=== PATIENT | female | born 1960 | race Caucasian/White ===

== ENCOUNTER 2018-03-24 11:51 | Day surgery (SDC) | payer OTHER ==
[2018-03-24] MEDS ORDERED: PROPOFOL 40 ML (13:59)
== END 2018-03-24 15:12 | disposition home or self-care (01) ==
LOC: GIL 11:51
DX: Z86.010 Personal history of colon polyps (principal); K64.8 Other hemorrhoids; E11.9 Type 2 diabetes mellitus without complications; E78.5 Hyperlipidemia, unspecified; E03.9 Hypothyroidism, unspecified; I10 Essential (primary) hypertension
CPT/HCPCS: 45378; 82962

== ENCOUNTER 2018-09-15 11:24 | Day surgery (SDC) | payer OTHER ==
[2018-09-15] MEDS ORDERED: PROPOFOL 20 ML (13:44)
[2018-09-15] MEDS ORDERED: FENTAnyl 50 MCG/ML VIAL (13:46)
[2018-09-15] MEDS ORDERED: ONDANSETRON 4 MG INJ IV (14:00)
[2018-09-15] MEDS ORDERED: LABETALOL HCL 20MG INJ IV (14:00)
[2018-09-15] MEDS ORDERED: hydrALAzine 20 MG INJ IV (14:00)
== END 2018-09-15 15:30 | disposition home or self-care (01) ==
LOC: GIL 11:24
DX: K21.0 Gastro-esophageal reflux disease with esophagitis (principal); K44.9 Diaphragmatic hernia without obstruction or gangrene; I10 Essential (primary) hypertension; E11.9 Type 2 diabetes mellitus without complications; E03.9 Hypothyroidism, unspecified; E66.01 Morbid (severe) obesity due to excess calories; Z68.43 Body mass index [BMI] 50.0-59.9, adult
CPT/HCPCS: 43239; 82962; 88305; 88312; 88313

== ENCOUNTER 2019-03-02 18:41 | Inpatient (IN) | payer OTHER ==
[2019-03-02] MEDS ORDERED: MAGNESIUM HYDROXIDE 30ML CUP PO (19:00)
[2019-03-02] MEDS ORDERED: ACETAMINOPHEN 325 MG TAB PO ×2 (19:00→20:00)
[2019-03-02] MEDS ORDERED: BISACODYL 10 MG SUPP PR (19:00)
[2019-03-02] MEDS ORDERED: LACTULOSE 30ML CUP PO (19:00)
[2019-03-02] MEDS ORDERED: PENDING SANTYL ORDER FOR WOUND CARE XX (19:00)
[2019-03-02] MEDS ORDERED: GLUCAGON 1 MG INJ IM (20:30)
[2019-03-02] MEDS ORDERED: GLUCOSE GEL 15 GRAM TUBE BUCCAL (20:30)
[2019-03-02] MEDS ORDERED: DEXTROSE 50% 50 ML SYRINGE IV ×2 (20:30)
[2019-03-02] MEDS ORDERED: GLUCOSE GEL 15 GRAM TUBE PO ×2 (20:30)
[2019-03-02] MEDS: INSULIN ASPART [NOVOLOG] 3 ML PEN SC (21:00)
[2019-03-02] MEDS: SENNA TAB PO (21:17)
[2019-03-02] MEDS: METOPROLOL 25 MG TAB PO (21:17)
[2019-03-02] MEDS: SUCRALFATE 1 GM TAB PO (21:17)
[2019-03-02] MEDS: DOCUSATE SODIUM 100 MG CAP PO (21:18)
[2019-03-02] MEDS: GABAPENTIN 100 MG CAP PO (21:18)
[2019-03-02] MEDS: HYDROmorphONE 1 MG/ML SYG IV (21:20)
[2019-03-02] MEDS ORDERED: NALOXONE (0.4 MG/ML) INJ IV (22:30)
[2019-03-02] MEDS ORDERED: HYOSCYAMINE 0.125 MG SUBL TAB PO (22:30)
[2019-03-02] MEDS ORDERED: AL HYDROX/MG HYDROX/SIMETH 30 ML CUP PO (22:30)
[2019-03-03] MEDS: HYDROmorphONE 1 MG/ML SYG IV ×7 (01:42→22:02)
[2019-03-03 04:56] LABS: ADD UMIC YES; UR AMORPHOUS CRYSTAL FEW /HPF (NONE SEEN); UR ASCORBIC ACID NEGATIVE (NEGATIVE); UR BACTERIA FEW /HPF (NONE SEEN); UR BILIRUBIN (Dip) NEGATIVE (NEGATIVE); UR BLOOD (Dip) NEGATIVE (NEGATIVE); UR CALCIUM OXALATE CRYSTAL MANY /HPF (NONE SEEN); UR CLARITY CLOUDY (CLEAR); UR COLOR YELLOW (YELLOW); UR GLUCOSE (Dip) NEGATIVE (NEGATIVE); UR KETONES (Dip) NEGATIVE (NEGATIVE); UR LEUKOCYTE ESTERASE (Dip) NEGATIVE Leu/ul (NEGATIVE); UR MUCUS FEW /HPF (NONE SEEN); UR NITRITE (Dip) POSITIVE (NEGATIVE); UR RBC 1 /HPF (0-5); UR SPECIFIC GRAVITY (Dip) 1.016 (1.003-1.030); UR SQUAMOUS EPITHELIAL CELL FEW /HPF (FEW); UR TOTAL PROTEIN (Dip) NEGATIVE (NEGATIVE); UR UROBILINOGEN (Dip) 1+ mg/dL (NEGATIVE); UR WBC 0 /HPF (0-5)
[2019-03-03 06:10] LABS: ADD MAN DIFF? NO
[2019-03-03 06:14] LABS: BASOPHIL # 0.1 10^3/ul (0.0-0.1); BASOPHILS % 0.7 % (0.0-2.0); EOSINOPHILS # 0.5 10^3/ul (0.0-0.5); EOSINOPHILS % 5.9 % (0.0-7.0); HEMOGLOBIN 12.9 g/dl (12.0-16.0); LYMPHOCYTES # 2.9 10^3/ul (0.8-2.9); MEAN CORPUSCULAR HEMOGLOBIN 30.3 pg (29.0-33.0); MEAN CORPUSCULAR HGB CONC 33.1 g/dl (32.0-37.0); MEAN CORPUSCULAR VOLUME 91.5 fl (82.0-101.0); MEAN PLATELET VOLUME 9.6 fl (7.4-10.4); MONOCYTE # 0.7 10^3/ul (0.3-0.9); MONOCYTES % 7.7 % (0.0-11.0); NEUTROPHIL # 4.7 10^3/ul (1.6-7.5); NEUTROPHILS % 53.3 % (39.0-77.0); PLATELET COUNT 321 10^3/UL (140-415); RED BLOOD COUNT 4.26 10^6/ul (4.20-5.40); RED CELL DISTRIBUTION WIDTH 14.3 % (11.5-14.5)
[2019-03-03 06:14] LABS: WHITE BLOOD COUNT 8.9 10^3/ul (4.8-10.8)
[2019-03-03 06:35] LABS: ALANINE AMINOTRANSFERASE 36 IU/L (13-69); ALBUMIN 3.5 g/dl (3.3-4.9); ALBUMIN/GLOBULIN RATIO 1.09; ALKALINE PHOSPHATASE 81 IU/L (42-121); ANION GAP 8 (5-13); ASPARTATE AMINO TRANSFERASE 37 IU/L (15-46); BILIRUBIN,INDIRECT 0.7 mg/dl (0-1.1); BILIRUBIN,TOTAL 0.7 mg/dl (0.2-1.3); BLOOD UREA NITROGEN 11 mg/dl (7-20); CALCIUM 8.9 mg/dl (8.4-10.2); CARBON DIOXIDE 28 mmol/L (21-31); CHLORIDE 103 mmol/L (97-110); CREATININE 0.57 mg/dl (0.44-1.00); Estimated GFR > 60 mL/min (>60); GLUCOSE 123 mg/dl (70-220); POTASSIUM 3.4 mmol/L (3.5-5.1); SODIUM 139 mmol/L (135-144); TOTAL PROTEIN 6.7 g/dl (6.1-8.1)
[2019-03-03] MEDS: SUCRALFATE 1 GM TAB PO ×4 (06:36→21:10)
[2019-03-03] MEDS: INSULIN ASPART [NOVOLOG] 3 ML PEN SC ×4 (07:35→21:00)
[2019-03-03] MEDS: ACCU-CHEK XX ×4 (07:52→21:00)
[2019-03-03] MEDS: metFORMIN 500 MG TAB PO ×2 (07:54→17:58)
[2019-03-03] MEDS: CHOLECALCIFEROL 2,000 UNIT CAP PO (08:51)
[2019-03-03] MEDS: DOCUSATE SODIUM 100 MG CAP PO ×2 (08:54→21:00)
[2019-03-03] MEDS: GABAPENTIN 100 MG CAP PO ×3 (08:54→21:10)
[2019-03-03] MEDS: METOPROLOL 25 MG TAB PO ×2 (08:55→21:11)
[2019-03-03] MEDS: TOPIRAMATE 25 MG TAB PO (08:55)
[2019-03-03] MEDS: HYDROCODONE/APAP (5/325) TAB PO ×2 (09:44→14:16)
[2019-03-03] MEDS: OXYCODONE/ACETAMINOPHEN (10/325) TAB PO (20:00)
[2019-03-03] MEDS: SENNA TAB PO (21:00)
[2019-03-04] MEDS: HYDROmorphONE 1 MG/ML SYG IV ×3 (01:03→07:02)
[2019-03-04] MEDS: SUCRALFATE 1 GM TAB PO ×4 (07:01→20:56)
[2019-03-04] MEDS: ACCU-CHEK XX ×4 (07:05→21:02)
[2019-03-04] MEDS: INSULIN ASPART [NOVOLOG] 3 ML PEN SC ×4 (07:35→21:00)
[2019-03-04] MEDS: metFORMIN 500 MG TAB PO ×2 (08:18→17:27)
[2019-03-04] MEDS: DOCUSATE SODIUM 100 MG CAP PO ×2 (08:18→21:00)
[2019-03-04] MEDS: TOPIRAMATE 25 MG TAB PO (08:19)
[2019-03-04] MEDS: GABAPENTIN 100 MG CAP PO ×3 (08:19→21:01)
[2019-03-04] MEDS: METOPROLOL 25 MG TAB PO ×2 (09:00→21:00)
[2019-03-04] MEDS: POTASSIUM CHLORIDE (SR) 20 MEQ TAB PO ×2 (09:58→17:27)
[2019-03-04] MEDS: CHOLECALCIFEROL 1,000 UNIT TAB PO (10:38)
[2019-03-04] MEDS: OXYCODONE/ACETAMINOPHEN (10/325) TAB PO ×4 (10:58→23:50)
[2019-03-04 17:21] LABS: ANION GAP 12 (5-13); BLOOD UREA NITROGEN 13 mg/dl (7-20); CALCIUM 9.6 mg/dl (8.4-10.2); CARBON DIOXIDE 23 mmol/L (21-31); CHLORIDE 103 mmol/L (97-110); CREATININE 0.68 mg/dl (0.44-1.00); Estimated GFR > 60 mL/min (>60); GLUCOSE 133 mg/dl (70-220); POTASSIUM 3.8 mmol/L (3.5-5.1); SODIUM 138 mmol/L (135-144)
[2019-03-04] MEDS: SENNA TAB PO (21:00)
[2019-03-05] MEDS: OXYCODONE/ACETAMINOPHEN (10/325) TAB PO ×5 (03:53→20:40)
[2019-03-05] MEDS: SUCRALFATE 1 GM TAB PO ×4 (06:48→20:40)
[2019-03-05] MEDS: INSULIN ASPART [NOVOLOG] 3 ML PEN SC ×4 (07:35→20:45)
[2019-03-05] MEDS: ACCU-CHEK XX ×4 (08:06→20:45)
[2019-03-05] MEDS ORDERED: CHOLECALCIFEROL 1,000 UNIT TAB PO (09:00)
[2019-03-05] MEDS: DOCUSATE SODIUM 100 MG CAP PO ×2 (09:00→20:44)
[2019-03-05] MEDS: metFORMIN 500 MG TAB PO ×2 (09:06→17:22)
[2019-03-05] MEDS: TOPIRAMATE 25 MG TAB PO (09:06)
[2019-03-05] MEDS: CHOLECALCIFEROL 1,000 UNIT TAB PO (09:06)
[2019-03-05] MEDS: GABAPENTIN 100 MG CAP PO ×3 (09:06→20:40)
[2019-03-05] MEDS: METOPROLOL 25 MG TAB PO ×2 (09:07→20:45)
[2019-03-05] MEDS: SENNA TAB PO (20:44)
[2019-03-06] MEDS: INSULIN ASPART [NOVOLOG] 3 ML PEN SC ×4 (07:35→20:27)
[2019-03-06] MEDS: ACCU-CHEK XX ×4 (07:48→21:32)
[2019-03-06] MEDS: metFORMIN 500 MG TAB PO ×2 (07:49→17:15)
[2019-03-06] MEDS: SUCRALFATE 1 GM TAB PO ×4 (07:49→20:19)
[2019-03-06] MEDS: OXYCODONE/ACETAMINOPHEN (10/325) TAB PO ×4 (07:50→20:18)
[2019-03-06] MEDS: GABAPENTIN 100 MG CAP PO ×3 (08:54→20:19)
[2019-03-06] MEDS: TOPIRAMATE 25 MG TAB PO (08:55)
[2019-03-06] MEDS: METOPROLOL 25 MG TAB PO ×2 (08:55→20:26)
[2019-03-06] MEDS: CHOLECALCIFEROL 1,000 UNIT TAB PO (08:56)
[2019-03-06] MEDS: DOCUSATE SODIUM 100 MG CAP PO ×2 (09:00→20:27)
[2019-03-06] MEDS: SENNA TAB PO (20:27)
[2019-03-07] MEDS: OXYCODONE/ACETAMINOPHEN (10/325) TAB PO ×5 (00:22→21:34)
[2019-03-07] MEDS: SUCRALFATE 1 GM TAB PO ×4 (06:42→21:33)
[2019-03-07] MEDS: INSULIN ASPART [NOVOLOG] 3 ML PEN SC ×4 (07:35→22:11)
[2019-03-07] MEDS: metFORMIN 500 MG TAB PO ×2 (08:03→18:50)
[2019-03-07] MEDS: ACCU-CHEK XX ×4 (08:03→21:00)
[2019-03-07] MEDS: DOCUSATE SODIUM 100 MG CAP PO ×2 (08:27→21:00)
[2019-03-07] MEDS: GABAPENTIN 100 MG CAP PO ×3 (08:28→21:33)
[2019-03-07] MEDS: TOPIRAMATE 25 MG TAB PO (08:29)
[2019-03-07] MEDS: HYDROmorphONE 1 MG/ML SYG IV (08:32)
[2019-03-07] MEDS: CHOLECALCIFEROL 1,000 UNIT TAB PO (09:00)
[2019-03-07] MEDS: METOPROLOL 25 MG TAB PO ×2 (09:00→21:33)
[2019-03-07] MEDS: HYDROmorphONE 1 MG/ML SYG SC ×3 (12:39→19:29)
[2019-03-07 16:12] LABS: ADD MAN DIFF? NO
[2019-03-07 16:17] LABS: BASOPHIL # 0.1 10^3/ul (0.0-0.1); EOSINOPHILS # 0.6 10^3/ul (0.0-0.5); EOSINOPHILS % 7.2 % (0.0-7.0); HEMATOCRIT 41.1 % (37.0-47.0); HEMOGLOBIN 13.4 g/dl (12.0-16.0); LYMPHOCYTES # 2.7 10^3/ul (0.8-2.9); LYMPHOCYTES % 32.4 % (15.0-51.0); MEAN CORPUSCULAR HEMOGLOBIN 30.4 pg (29.0-33.0); MEAN CORPUSCULAR HGB CONC 32.6 g/dl (32.0-37.0); MEAN CORPUSCULAR VOLUME 93.2 fl (82.0-101.0); MEAN PLATELET VOLUME 9.8 fl (7.4-10.4); MONOCYTE # 0.6 10^3/ul (0.3-0.9); MONOCYTES % 7.6 % (0.0-11.0); NEUTROPHIL # 4.3 10^3/ul (1.6-7.5); NEUTROPHILS % 51.4 % (39.0-77.0); PLATELET COUNT 340 10^3/UL (140-415); RED BLOOD COUNT 4.41 10^6/ul (4.20-5.40)
[2019-03-07 16:17] LABS: WHITE BLOOD COUNT 8.3 10^3/ul (4.8-10.8)
[2019-03-07] MEDS: SENNA TAB PO (21:00)
[2019-03-07] MEDS: NEOMYC/POLYMYX/BACIT 30 GM OINT TOP (22:10)
[2019-03-08] MEDS: HYDROmorphONE 1 MG/ML SYG SC ×3 (00:10→19:43)
[2019-03-08] MEDS: ACCU-CHEK XX ×4 (07:05→20:36)
[2019-03-08] MEDS: INSULIN ASPART [NOVOLOG] 3 ML PEN SC ×4 (07:35→20:36)
[2019-03-08] MEDS: SUCRALFATE 1 GM TAB PO ×4 (08:07→20:33)
[2019-03-08] MEDS: metFORMIN 500 MG TAB PO ×2 (08:08→17:26)
[2019-03-08] MEDS: DOCUSATE SODIUM 100 MG CAP PO ×2 (09:00→20:36)
[2019-03-08] MEDS: CHOLECALCIFEROL 1,000 UNIT TAB PO (09:08)
[2019-03-08] MEDS: GABAPENTIN 100 MG CAP PO ×3 (09:09→20:33)
[2019-03-08] MEDS: METOPROLOL 25 MG TAB PO ×2 (09:09→20:34)
[2019-03-08] MEDS: TOPIRAMATE 25 MG TAB PO (09:10)
[2019-03-08] MEDS: OXYCODONE/ACETAMINOPHEN (10/325) TAB PO ×3 (09:10→22:36)
[2019-03-08] MEDS: NEOMYC/POLYMYX/BACIT 30 GM OINT TOP ×2 (09:11→20:34)
[2019-03-08] MEDS: TRIMETHOPRIM/SULFAMETHOX (DS) TAB PO (20:33)
[2019-03-08] MEDS: SENNA TAB PO (20:36)
[2019-03-09] MEDS: HYDROmorphONE 1 MG/ML SYG SC ×2 (00:27→08:19)
[2019-03-09] MEDS: SUCRALFATE 1 GM TAB PO (06:36)
[2019-03-09] MEDS: INSULIN ASPART [NOVOLOG] 3 ML PEN SC (07:35)
[2019-03-09] MEDS: metFORMIN 500 MG TAB PO (07:55)
[2019-03-09] MEDS: ACCU-CHEK XX (07:55)
[2019-03-09] MEDS: TRIMETHOPRIM/SULFAMETHOX (DS) TAB PO (08:14)
[2019-03-09] MEDS: TOPIRAMATE 25 MG TAB PO (08:15)
[2019-03-09] MEDS: GABAPENTIN 100 MG CAP PO (08:15)
[2019-03-09] MEDS: METOPROLOL 25 MG TAB PO (08:15)
[2019-03-09] MEDS: CHOLECALCIFEROL 1,000 UNIT TAB PO (08:16)
[2019-03-09] MEDS: NEOMYC/POLYMYX/BACIT 30 GM OINT TOP (08:16)
[2019-03-09] MEDS: DOCUSATE SODIUM 100 MG CAP PO (09:00)
[2019-03-09] MEDS: OXYCODONE/ACETAMINOPHEN (10/325) TAB PO (10:40)
== END 2019-03-09 11:08 | disposition home health service (06) | DRG 560 ==
LOC: VRC 18:41
PROVIDERS: Physical Medicine & Rehabilitation
DX: Z47.89 Encounter for other orthopedic aftercare (principal); Z68.43 Body mass index [BMI] 50.0-59.9, adult; T81.31XA Disruption of external operation (surgical) wound, not elsewhere classified, initial encounter; T81.49XA Infection following a procedure, other surgical site, initial encounter; E11.9 Type 2 diabetes mellitus without complications; I10 Essential (primary) hypertension; E03.9 Hypothyroidism, unspecified; K58.9 Irritable bowel syndrome, unspecified; E66.01 Morbid (severe) obesity due to excess calories; M79.7 Fibromyalgia; Z74.09 Other reduced mobility; Z98.1 Arthrodesis status
CPT/HCPCS: 80048; 80053; 81001; 82962; 85025; 87070; 87081; 87086; 97110; 97112; 97116; 97163; 97166; 97530; 97535

== ENCOUNTER 2019-03-24 14:48 | Inpatient (IN) | payer OTHER ==
[2019-03-24 15:38] LABS: ADD MAN DIFF? NO
[2019-03-24 15:48] LABS: WHITE BLOOD COUNT 5.6 10^3/ul (4.8-10.8)
[2019-03-24 15:48] LABS: BASOPHILS % 0.7 % (0.0-2.0); EOSINOPHILS # 0.2 10^3/ul (0.0-0.5); EOSINOPHILS % 3.8 % (0.0-7.0); HEMATOCRIT 40.6 % (37.0-47.0); HEMOGLOBIN 13.1 g/dl (12.0-16.0); LYMPHOCYTES # 1.8 10^3/ul (0.8-2.9); MEAN CORPUSCULAR HEMOGLOBIN 30.3 pg (29.0-33.0); MEAN CORPUSCULAR HGB CONC 32.3 g/dl (32.0-37.0); MEAN CORPUSCULAR VOLUME 93.8 fl (82.0-101.0); MEAN PLATELET VOLUME 9.4 fl (7.4-10.4); MONOCYTE # 0.4 10^3/ul (0.3-0.9); MONOCYTES % 6.6 % (0.0-11.0); NEUTROPHIL # 3.2 10^3/ul (1.6-7.5); NEUTROPHILS % 56.7 % (39.0-77.0); PLATELET COUNT 336 10^3/UL (140-415); RED BLOOD COUNT 4.33 10^6/ul (4.20-5.40); RED CELL DISTRIBUTION WIDTH 14.2 % (11.5-14.5)
[2019-03-24 16:10] LABS: ALANINE AMINOTRANSFERASE 38 IU/L (13-69); ALBUMIN 4.3 g/dl (3.3-4.9); ALBUMIN/GLOBULIN RATIO 1.26; ALKALINE PHOSPHATASE 66 IU/L (42-121); ANION GAP 12 (5-13); ASPARTATE AMINO TRANSFERASE 32 IU/L (15-46); BILIRUBIN,INDIRECT 0.4 mg/dl (0-1.1); BILIRUBIN,TOTAL 0.4 mg/dl (0.2-1.3); BLOOD UREA NITROGEN 15 mg/dl (7-20); CALCIUM 9.5 mg/dl (8.4-10.2); CARBON DIOXIDE 22 mmol/L (21-31); CHLORIDE 106 mmol/L (97-110); CREATININE 0.65 mg/dl (0.44-1.00); Estimated GFR > 60 mL/min (>60); GLUCOSE 125 mg/dl (70-220); SODIUM 140 mmol/L (135-144); TOTAL PROTEIN 7.7 g/dl (6.1-8.1)
[2019-03-24] MEDS: CEFAZOLIN 2 GM/50 ML (PMX) 50 ML IVPB ×2 (18:37→22:05)
[2019-03-24] MEDS ORDERED: ACETAMINOPHEN 325 MG TAB PO (20:00)
[2019-03-24] MEDS ORDERED: ONDANSETRON 4 MG INJ IV (20:00)
[2019-03-24] MEDS ORDERED: HYOSCYAMINE 0.125 MG SUBL TAB SL (21:00)
[2019-03-24] MEDS ORDERED: METOPROLOL 100 MG TAB PO (21:00)
[2019-03-24] MEDS ORDERED: metFORMIN 500 MG TAB PO (21:00)
[2019-03-24] MEDS: INSULIN ASPART [NOVOLOG] 3 ML PEN SC (21:00)
[2019-03-24] MEDS ORDERED: GABAPENTIN 400 MG CAP PO (21:00)
[2019-03-24] MEDS ORDERED: ALBUTEROL HFA 8 GM INHALER INH (21:00)
[2019-03-24] MEDS ORDERED: ACETAMINOPHEN 500 MG TAB PO (21:30)
[2019-03-24] MEDS ORDERED: NALOXONE (0.4 MG/ML) INJ IV (21:30)
[2019-03-24] MEDS ORDERED: GLUCAGON 1 MG INJ IM (22:00)
[2019-03-24] MEDS ORDERED: GLUCOSE GEL 15 GRAM TUBE BUCCAL (22:00)
[2019-03-24] MEDS ORDERED: GLUCOSE GEL 15 GRAM TUBE PO ×2 (22:00)
[2019-03-24] MEDS ORDERED: DEXTROSE 50% 50 ML SYRINGE IV ×2 (22:00)
[2019-03-24] MEDS: GABAPENTIN 100 MG CAP PO (22:02)
[2019-03-24] MEDS: SUCRALFATE 1 GM TAB PO (22:02)
[2019-03-24] MEDS: metFORMIN 850 MG TAB PO (22:03)
[2019-03-24] MEDS: HYDROCODONE/APAP (5/325) TAB PO (22:46)
[2019-03-24] MEDS: POTASSIUM CHLORIDE 10 MEQ in SOD CHLORIDE 0.45% 1,000 ML IV (22:47)
[2019-03-24] MEDS: METOPROLOL 25 MG TAB PO (22:47)
[2019-03-24] MEDS: CHOLECALCIFEROL 1,000 UNIT TAB PO (22:47)
[2019-03-25] MEDS: ONDANSETRON 4 MG TAB PO (00:26)
[2019-03-25] MEDS: OXYCODONE/ACETAMINOPHEN (10/325) TAB PO ×4 (02:32→20:05)
[2019-03-25 05:28] LABS: ADD MAN DIFF? NO
[2019-03-25] MEDS: HYDROCODONE/APAP (5/325) TAB PO (05:32)
[2019-03-25] MEDS: CEFAZOLIN 2 GM/50 ML (PMX) 50 ML IVPB ×2 (05:33→13:31)
[2019-03-25 05:37] LABS: WHITE BLOOD COUNT 5.8 10^3/ul (4.8-10.8)
[2019-03-25 05:37] LABS: BASOPHIL # 0.1 10^3/ul (0.0-0.1); BASOPHILS % 0.9 % (0.0-2.0); EOSINOPHILS # 0.3 10^3/ul (0.0-0.5); EOSINOPHILS % 4.5 % (0.0-7.0); HEMOGLOBIN 11.9 g/dl (12.0-16.0); LYMPHOCYTES # 2.4 10^3/ul (0.8-2.9); LYMPHOCYTES % 40.3 % (15.0-51.0); MEAN CORPUSCULAR HEMOGLOBIN 30.7 pg (29.0-33.0); MEAN CORPUSCULAR HGB CONC 32.2 g/dl (32.0-37.0); MEAN CORPUSCULAR VOLUME 95.6 fl (82.0-101.0); MEAN PLATELET VOLUME 9.7 fl (7.4-10.4); MONOCYTE # 0.4 10^3/ul (0.3-0.9); MONOCYTES % 6.5 % (0.0-11.0); NEUTROPHIL # 2.8 10^3/ul (1.6-7.5); NEUTROPHILS % 47.5 % (39.0-77.0); PLATELET COUNT 304 10^3/UL (140-415); RED BLOOD COUNT 3.87 10^6/ul (4.20-5.40); RED CELL DISTRIBUTION WIDTH 14.2 % (11.5-14.5)
[2019-03-25 07:00] LABS: HEMOGLOBIN A1C 5.8 % (0-5.9)
[2019-03-25] MEDS: INSULIN ASPART [NOVOLOG] 3 ML PEN SC ×4 (07:35→20:10)
[2019-03-25] MEDS: CHOLECALCIFEROL 1,000 UNIT TAB PO (08:11)
[2019-03-25] MEDS: ASPIRIN (EC) 81 MG TAB PO (08:12)
[2019-03-25] MEDS: GABAPENTIN 100 MG CAP PO ×3 (08:12→20:10)
[2019-03-25] MEDS: SUCRALFATE 1 GM TAB PO ×4 (08:12→20:10)
[2019-03-25] MEDS: metFORMIN 850 MG TAB PO ×2 (08:13→17:05)
[2019-03-25] MEDS: TOPIRAMATE 25 MG TAB PO (08:13)
[2019-03-25] MEDS: METOPROLOL 25 MG TAB PO ×2 (08:14→21:51)
[2019-03-25] MEDS: FLUTICASONE 0.05% 16 GM NAS SPRAY NASAL (08:14)
[2019-03-25] MEDS: PIPER-TAZO 3.375 GM IV (PMX) 100 ML IVPB ×2 (14:05→21:49)
[2019-03-25] MEDS: POTASSIUM CHLORIDE 10 MEQ in SOD CHLORIDE 0.45% 1,000 ML IV ×2 (17:36→21:53)
[2019-03-25] MEDS: HYDROmorphONE 1 MG/ML SYG IV (23:19)
[2019-03-26] MEDS: HYDROmorphONE 1 MG/ML SYG IV ×5 (03:35→21:40)
[2019-03-26] MEDS: PIPER-TAZO 3.375 GM IV (PMX) 100 ML IVPB ×3 (05:43→21:00)
[2019-03-26] MEDS: INSULIN ASPART [NOVOLOG] 3 ML PEN SC ×4 (07:35→20:56)
[2019-03-26] MEDS: ASPIRIN (EC) 81 MG TAB PO (07:55)
[2019-03-26] MEDS: metFORMIN 850 MG TAB PO ×2 (07:56→17:25)
[2019-03-26] MEDS: SUCRALFATE 1 GM TAB PO ×4 (07:56→20:56)
[2019-03-26] MEDS: GABAPENTIN 100 MG CAP PO ×3 (07:57→20:56)
[2019-03-26] MEDS: CHOLECALCIFEROL 1,000 UNIT TAB PO (07:57)
[2019-03-26] MEDS: FLUTICASONE 0.05% 16 GM NAS SPRAY NASAL (07:59)
[2019-03-26] MEDS: METOPROLOL 25 MG TAB PO ×2 (07:59→20:57)
[2019-03-26] MEDS: TOPIRAMATE 25 MG TAB PO (08:01)
[2019-03-26] MEDS: POTASSIUM CHLORIDE 10 MEQ in SOD CHLORIDE 0.45% 1,000 ML IV ×2 (13:24→21:38)
[2019-03-26] MEDS: OXYCODONE/ACETAMINOPHEN (10/325) TAB PO (14:09)
[2019-03-26] MEDS ORDERED: VANCOMYCIN IV PER PHARMACY XX (19:30)
[2019-03-26] MEDS: CASPOFUNGIN 70 MG in SOD CHLORIDE 0.9% 250 ML IVPB (21:39)
[2019-03-26] MEDS: VANCOMYCIN HCL 2 GM in SOD CHLORIDE 0.9% 500 ML IVPB (22:56)
[2019-03-27] MEDS: HYDROmorphONE 1 MG/ML SYG IV ×6 (02:35→22:54)
[2019-03-27] MEDS: PIPER-TAZO 3.375 GM IV (PMX) 100 ML IVPB ×3 (05:00→22:49)
[2019-03-27 06:05] LABS: ADD MAN DIFF? NO
[2019-03-27 06:20] LABS: WHITE BLOOD COUNT 5.7 10^3/ul (4.8-10.8)
[2019-03-27 06:20] LABS: BASOPHILS % 0.7 % (0.0-2.0); EOSINOPHILS # 0.3 10^3/ul (0.0-0.5); EOSINOPHILS % 5.4 % (0.0-7.0); HEMATOCRIT 37.7 % (37.0-47.0); HEMOGLOBIN 12.2 g/dl (12.0-16.0); LYMPHOCYTES # 1.8 10^3/ul (0.8-2.9); LYMPHOCYTES % 31.1 % (15.0-51.0); MEAN CORPUSCULAR HEMOGLOBIN 30.9 pg (29.0-33.0); MEAN CORPUSCULAR HGB CONC 32.4 g/dl (32.0-37.0); MEAN CORPUSCULAR VOLUME 95.4 fl (82.0-101.0); MEAN PLATELET VOLUME 9.8 fl (7.4-10.4); MONOCYTE # 0.5 10^3/ul (0.3-0.9); MONOCYTES % 8.4 % (0.0-11.0); NEUTROPHIL # 3.1 10^3/ul (1.6-7.5); NEUTROPHILS % 54.2 % (39.0-77.0); PLATELET COUNT 291 10^3/UL (140-415); RED BLOOD COUNT 3.95 10^6/ul (4.20-5.40); RED CELL DISTRIBUTION WIDTH 13.9 % (11.5-14.5)
[2019-03-27 06:58] LABS: ANION GAP 6 (5-13); BLOOD UREA NITROGEN 9 mg/dl (7-20); CALCIUM 8.9 mg/dl (8.4-10.2); CARBON DIOXIDE 28 mmol/L (21-31); CHLORIDE 105 mmol/L (97-110); CREATININE 0.57 mg/dl (0.44-1.00); Estimated GFR > 60 mL/min (>60); GLUCOSE 98 mg/dl (70-220); POTASSIUM 3.7 mmol/L (3.5-5.1); SODIUM 139 mmol/L (135-144)
[2019-03-27] MEDS: INSULIN ASPART [NOVOLOG] 3 ML PEN SC ×4 (07:35→20:57)
[2019-03-27] MEDS: SUCRALFATE 1 GM TAB PO ×4 (08:27→20:56)
[2019-03-27] MEDS: TOPIRAMATE 25 MG TAB PO (08:27)
[2019-03-27] MEDS: ASPIRIN (EC) 81 MG TAB PO (08:27)
[2019-03-27] MEDS: metFORMIN 850 MG TAB PO ×2 (08:27→17:03)
[2019-03-27] MEDS: GABAPENTIN 100 MG CAP PO ×3 (08:27→20:56)
[2019-03-27] MEDS: FLUTICASONE 0.05% 16 GM NAS SPRAY NASAL (08:27)
[2019-03-27] MEDS: METOPROLOL 25 MG TAB PO ×2 (08:28→20:57)
[2019-03-27] MEDS: VANCOMYCIN 1.25 GM/NS 250 ML 250 ML IVPB ×2 (08:30→20:56)
[2019-03-27] MEDS: CHOLECALCIFEROL 1,000 UNIT TAB PO (09:00)
[2019-03-27] MEDS: CASPOFUNGIN 50 MG in SOD CHLORIDE 0.9% 250 ML IVPB (19:35)
[2019-03-28] MEDS: HYDROmorphONE 1 MG/ML SYG IV ×6 (02:44→23:23)
[2019-03-28] MEDS: PIPER-TAZO 3.375 GM IV (PMX) 100 ML IVPB ×2 (05:34→14:29)
[2019-03-28] MEDS: INSULIN ASPART [NOVOLOG] 3 ML PEN SC ×4 (07:35→21:00)
[2019-03-28 08:14] LABS: VANCOMYCIN,TROUGH 9.1 ug/ml (10.0-20.0)
[2019-03-28] MEDS: SUCRALFATE 1 GM TAB PO ×4 (08:31→20:11)
[2019-03-28] MEDS: TOPIRAMATE 25 MG TAB PO (08:32)
[2019-03-28] MEDS: CHOLECALCIFEROL 1,000 UNIT TAB PO (08:32)
[2019-03-28] MEDS: GABAPENTIN 100 MG CAP PO ×3 (08:32→20:11)
[2019-03-28] MEDS: ASPIRIN (EC) 81 MG TAB PO (08:32)
[2019-03-28] MEDS: metFORMIN 850 MG TAB PO ×2 (08:32→17:16)
[2019-03-28] MEDS: METOPROLOL 25 MG TAB PO ×2 (08:33→20:11)
[2019-03-28] MEDS: FLUTICASONE 0.05% 16 GM NAS SPRAY NASAL (08:33)
[2019-03-28] MEDS: VANCOMYCIN 1.25 GM/NS 250 ML 250 ML IVPB (08:55)
[2019-03-28] MEDS: CIPROFLOXACIN 500 MG TAB PO (17:17)
[2019-03-29] MEDS: CIPROFLOXACIN 500 MG TAB PO (05:51)
[2019-03-29] MEDS: HYDROmorphONE 1 MG/ML SYG IV ×6 (05:54→21:22)
[2019-03-29] MEDS: INSULIN ASPART [NOVOLOG] 3 ML PEN SC ×4 (07:35→20:17)
[2019-03-29] MEDS: OXYCODONE/ACETAMINOPHEN (10/325) TAB PO ×2 (07:45→13:55)
[2019-03-29] MEDS: CHOLECALCIFEROL 1,000 UNIT TAB PO (08:33)
[2019-03-29] MEDS: FLUCONAZOLE 200 MG TAB PO (08:33)
[2019-03-29] MEDS: FLUTICASONE 0.05% 16 GM NAS SPRAY NASAL (08:33)
[2019-03-29] MEDS: GABAPENTIN 100 MG CAP PO ×3 (08:33→20:13)
[2019-03-29] MEDS: SUCRALFATE 1 GM TAB PO ×4 (08:33→20:13)
[2019-03-29] MEDS: TOPIRAMATE 25 MG TAB PO (08:34)
[2019-03-29] MEDS: metFORMIN 850 MG TAB PO ×2 (08:34→17:08)
[2019-03-29] MEDS: METOPROLOL 25 MG TAB PO ×2 (08:34→20:13)
[2019-03-29] MEDS: ASPIRIN (EC) 81 MG TAB PO (08:34)
[2019-03-29] MEDS: CIPROFLOXACIN 400MG/D5W 200 ML IVPB (17:07)
[2019-03-29] MEDS: ONDANSETRON 4 MG TAB PO (17:56)
[2019-03-30] MEDS: HYDROmorphONE 1 MG/ML SYG IV ×7 (00:46→22:57)
[2019-03-30] MEDS: CIPROFLOXACIN 400MG/D5W 200 ML IVPB ×2 (05:44→17:03)
[2019-03-30] MEDS: INSULIN ASPART [NOVOLOG] 3 ML PEN SC ×4 (07:35→21:00)
[2019-03-30] MEDS: GABAPENTIN 100 MG CAP PO ×3 (08:14→20:28)
[2019-03-30] MEDS: TOPIRAMATE 25 MG TAB PO (08:14)
[2019-03-30] MEDS: SUCRALFATE 1 GM TAB PO ×4 (08:14→20:28)
[2019-03-30] MEDS: CHOLECALCIFEROL 1,000 UNIT TAB PO (08:14)
[2019-03-30] MEDS: ASPIRIN (EC) 81 MG TAB PO (08:14)
[2019-03-30] MEDS: FLUCONAZOLE 200 MG TAB PO (08:14)
[2019-03-30] MEDS: metFORMIN 850 MG TAB PO ×2 (08:15→17:00)
[2019-03-30] MEDS: METOPROLOL 25 MG TAB PO ×2 (08:15→20:28)
[2019-03-30] MEDS: FLUTICASONE 0.05% 16 GM NAS SPRAY NASAL (08:16)
[2019-03-30] MEDS: ONDANSETRON 4 MG TAB PO ×2 (10:20→19:52)
[2019-03-31] MEDS: CIPROFLOXACIN 400MG/D5W 200 ML IVPB ×2 (05:15→17:17)
[2019-03-31] MEDS: INSULIN ASPART [NOVOLOG] 3 ML PEN SC ×4 (07:35→21:00)
[2019-03-31] MEDS: ASPIRIN (EC) 81 MG TAB PO (08:23)
[2019-03-31] MEDS: SUCRALFATE 1 GM TAB PO ×4 (08:25→20:07)
[2019-03-31] MEDS: metFORMIN 850 MG TAB PO ×2 (08:25→17:17)
[2019-03-31] MEDS: CHOLECALCIFEROL 1,000 UNIT TAB PO (08:25)
[2019-03-31] MEDS: FLUCONAZOLE 200 MG TAB PO (08:25)
[2019-03-31] MEDS: GABAPENTIN 100 MG CAP PO ×3 (08:25→20:07)
[2019-03-31] MEDS: TOPIRAMATE 25 MG TAB PO (08:25)
[2019-03-31] MEDS: METOPROLOL 25 MG TAB PO ×2 (08:26→20:08)
[2019-03-31] MEDS: FLUTICASONE 0.05% 16 GM NAS SPRAY NASAL (08:28)
[2019-03-31] MEDS: ONDANSETRON 4 MG TAB PO ×2 (14:05→20:07)
[2019-03-31] MEDS: HYDROmorphONE 1 MG/ML SYG IV ×3 (15:35→22:05)
[2019-04-01] MEDS: HYDROmorphONE 1 MG/ML SYG IV ×6 (01:37→21:57)
[2019-04-01] MEDS: CIPROFLOXACIN 400MG/D5W 200 ML IVPB (05:31)
[2019-04-01 05:35] LABS: ADD MAN DIFF? NO
[2019-04-01 05:40] LABS: BASOPHIL # 0.1 10^3/ul (0.0-0.1); BASOPHILS % 0.7 % (0.0-2.0); EOSINOPHILS # 0.3 10^3/ul (0.0-0.5); EOSINOPHILS % 3.6 % (0.0-7.0); HEMATOCRIT 38.3 % (37.0-47.0); HEMOGLOBIN 12.1 g/dl (12.0-16.0); LYMPHOCYTES # 2.2 10^3/ul (0.8-2.9); LYMPHOCYTES % 29.9 % (15.0-51.0); MEAN CORPUSCULAR HEMOGLOBIN 29.9 pg (29.0-33.0); MEAN CORPUSCULAR HGB CONC 31.6 g/dl (32.0-37.0); MEAN CORPUSCULAR VOLUME 94.6 fl (82.0-101.0); MEAN PLATELET VOLUME 9.7 fl (7.4-10.4); MONOCYTE # 0.6 10^3/ul (0.3-0.9); MONOCYTES % 8.4 % (0.0-11.0); NEUTROPHIL # 4.2 10^3/ul (1.6-7.5); NEUTROPHILS % 57.1 % (39.0-77.0); PLATELET COUNT 293 10^3/UL (140-415); RED BLOOD COUNT 4.05 10^6/ul (4.20-5.40); RED CELL DISTRIBUTION WIDTH 13.8 % (11.5-14.5)
[2019-04-01 05:40] LABS: WHITE BLOOD COUNT 7.4 10^3/ul (4.8-10.8)
[2019-04-01 06:14] LABS: ANION GAP 10 (5-13); BLOOD UREA NITROGEN 14 mg/dl (7-20); CALCIUM 9.4 mg/dl (8.4-10.2); CARBON DIOXIDE 25 mmol/L (21-31); CHLORIDE 104 mmol/L (97-110); CREATININE 3.06 mg/dl (0.44-1.00); Estimated GFR 16 mL/min (>60); GLUCOSE 94 mg/dl (70-220); POTASSIUM 3.4 mmol/L (3.5-5.1); SODIUM 139 mmol/L (135-144)
[2019-04-01] MEDS: ONDANSETRON 4 MG TAB PO (07:16)
[2019-04-01] MEDS: INSULIN ASPART [NOVOLOG] 3 ML PEN SC ×4 (07:35→20:53)
[2019-04-01] MEDS: FLUTICASONE 0.05% 16 GM NAS SPRAY NASAL (08:07)
[2019-04-01] MEDS: ASPIRIN (EC) 81 MG TAB PO (08:07)
[2019-04-01] MEDS: GABAPENTIN 100 MG CAP PO ×3 (08:08→20:53)
[2019-04-01] MEDS: TOPIRAMATE 25 MG TAB PO (08:08)
[2019-04-01] MEDS: CHOLECALCIFEROL 1,000 UNIT TAB PO (08:08)
[2019-04-01] MEDS: SUCRALFATE 1 GM TAB PO ×4 (08:08→20:53)
[2019-04-01] MEDS: metFORMIN 850 MG TAB PO ×2 (08:08→17:24)
[2019-04-01] MEDS: METOPROLOL 25 MG TAB PO ×2 (08:09→20:54)
[2019-04-01] MEDS: FLUCONAZOLE 200 MG TAB PO (08:09)
[2019-04-01] MEDS: POTASSIUM CHLORIDE (SR) 20 MEQ TAB PO (13:35)
[2019-04-01] MEDS: CIPROFLOXACIN 500 MG TAB PO (17:24)
[2019-04-01] MEDS: OXYCODONE/ACETAMINOPHEN (10/325) TAB PO (20:54)
[2019-04-02] MEDS: HYDROmorphONE 1 MG/ML SYG IV ×3 (04:43→19:58)
[2019-04-02] MEDS: CIPROFLOXACIN 500 MG TAB PO (05:34)
[2019-04-02] MEDS: INSULIN ASPART [NOVOLOG] 3 ML PEN SC ×4 (07:35→20:01)
[2019-04-02] MEDS: FLUTICASONE 0.05% 16 GM NAS SPRAY NASAL (08:36)
[2019-04-02] MEDS: FLUCONAZOLE 200 MG TAB PO (08:36)
[2019-04-02] MEDS: TOPIRAMATE 25 MG TAB PO (08:37)
[2019-04-02] MEDS: metFORMIN 850 MG TAB PO (08:37)
[2019-04-02] MEDS: ASPIRIN (EC) 81 MG TAB PO (08:37)
[2019-04-02] MEDS: METOPROLOL 25 MG TAB PO ×2 (08:38→20:00)
[2019-04-02] MEDS: SUCRALFATE 1 GM TAB PO ×4 (08:38→20:00)
[2019-04-02] MEDS: GABAPENTIN 100 MG CAP PO ×3 (08:38→20:00)
[2019-04-02] MEDS: CHOLECALCIFEROL 1,000 UNIT TAB PO (08:39)
[2019-04-02] MEDS: SOD CHLORIDE 0.45% 1,000 ML IV (12:09)
[2019-04-02 13:31] LABS: ADD MAN DIFF? NO
[2019-04-02 13:32] LABS: WHITE BLOOD COUNT 7.7 10^3/ul (4.8-10.8)
[2019-04-02 13:32] LABS: BASOPHIL # 0.1 10^3/ul (0.0-0.1); BASOPHILS % 0.8 % (0.0-2.0); EOSINOPHILS # 0.2 10^3/ul (0.0-0.5); EOSINOPHILS % 2.4 % (0.0-7.0); HEMOGLOBIN 12.7 g/dl (12.0-16.0); LYMPHOCYTES # 1.7 10^3/ul (0.8-2.9); LYMPHOCYTES % 21.6 % (15.0-51.0); MEAN CORPUSCULAR HEMOGLOBIN 30.2 pg (29.0-33.0); MEAN CORPUSCULAR HGB CONC 32.6 g/dl (32.0-37.0); MEAN CORPUSCULAR VOLUME 92.6 fl (82.0-101.0); MEAN PLATELET VOLUME 9.3 fl (7.4-10.4); MONOCYTE # 0.6 10^3/ul (0.3-0.9); MONOCYTES % 8.2 % (0.0-11.0); NEUTROPHIL # 5.1 10^3/ul (1.6-7.5); NEUTROPHILS % 66.7 % (39.0-77.0); PLATELET COUNT 302 10^3/UL (140-415); RED BLOOD COUNT 4.21 10^6/ul (4.20-5.40); RED CELL DISTRIBUTION WIDTH 13.9 % (11.5-14.5)
[2019-04-02 13:50] LABS: URIC ACID 8.8 mg/dl (3.1-7.9)
[2019-04-02 13:50] LABS: CREATINE KINASE 112 IU/L (23-200)
[2019-04-02 13:55] LABS: ANION GAP 10 (5-13); BLOOD UREA NITROGEN 18 mg/dl (7-20); CALCIUM 9.6 mg/dl (8.4-10.2); CARBON DIOXIDE 26 mmol/L (21-31); CHLORIDE 103 mmol/L (97-110); CREATININE 3.06 mg/dl (0.44-1.00); Estimated GFR 16 mL/min (>60); GLUCOSE 124 mg/dl (70-220); POTASSIUM 3.9 mmol/L (3.5-5.1); SODIUM 139 mmol/L (135-144)
[2019-04-02] MEDS: CIPROFLOXACIN 250 MG TAB PO (17:15)
[2019-04-02] MEDS: OXYCODONE/ACETAMINOPHEN (10/325) TAB PO (18:39)
[2019-04-02] MEDS: ONDANSETRON 4 MG TAB PO (20:10)
[2019-04-03] MEDS: SOD CHLORIDE 0.45% 1,000 ML IV ×2 (01:38→14:55)
[2019-04-03] MEDS: CIPROFLOXACIN 250 MG TAB PO ×2 (05:10→17:02)
[2019-04-03] MEDS: INSULIN ASPART [NOVOLOG] 3 ML PEN SC ×4 (07:35→20:54)
[2019-04-03] MEDS: ASPIRIN (EC) 81 MG TAB PO (08:29)
[2019-04-03] MEDS: GABAPENTIN 100 MG CAP PO ×3 (08:29→20:54)
[2019-04-03] MEDS: CHOLECALCIFEROL 1,000 UNIT TAB PO (08:29)
[2019-04-03] MEDS: FLUCONAZOLE 200 MG TAB PO (08:29)
[2019-04-03] MEDS: TOPIRAMATE 25 MG TAB PO (08:29)
[2019-04-03] MEDS: SUCRALFATE 1 GM TAB PO ×4 (08:29→20:53)
[2019-04-03] MEDS: METOPROLOL 25 MG TAB PO ×2 (08:30→20:54)
[2019-04-03] MEDS: FLUTICASONE 0.05% 16 GM NAS SPRAY NASAL (08:30)
[2019-04-03 14:32] LABS: ANION GAP 10 (5-13); BLOOD UREA NITROGEN 19 mg/dl (7-20); CALCIUM 9.5 mg/dl (8.4-10.2); CARBON DIOXIDE 24 mmol/L (21-31); CHLORIDE 104 mmol/L (97-110); CREATININE 2.86 mg/dl (0.44-1.00); Estimated GFR 17 mL/min (>60); GLUCOSE 138 mg/dl (70-220); POTASSIUM 3.9 mmol/L (3.5-5.1); SODIUM 138 mmol/L (135-144)
[2019-04-03] MEDS: OXYCODONE/ACETAMINOPHEN (10/325) TAB PO ×2 (14:55→20:53)
[2019-04-04] MEDS: OXYCODONE/ACETAMINOPHEN (10/325) TAB PO (03:43)
[2019-04-04] MEDS: SOD CHLORIDE 0.45% 1,000 ML IV ×3 (04:30→20:19)
[2019-04-04] MEDS: SUCRALFATE 1 GM TAB PO ×4 (06:24→20:15)
[2019-04-04] MEDS: CIPROFLOXACIN 250 MG TAB PO ×2 (06:24→17:06)
[2019-04-04 06:28] LABS: ANION GAP 8 (5-13); BLOOD UREA NITROGEN 20 mg/dl (7-20); CALCIUM 9.3 mg/dl (8.4-10.2); CARBON DIOXIDE 26 mmol/L (21-31); CHLORIDE 104 mmol/L (97-110); CREATININE 2.69 mg/dl (0.44-1.00); Estimated GFR 18 mL/min (>60); GLUCOSE 104 mg/dl (70-220); POTASSIUM 3.7 mmol/L (3.5-5.1); SODIUM 138 mmol/L (135-144)
[2019-04-04] MEDS: INSULIN ASPART [NOVOLOG] 3 ML PEN SC ×4 (07:35→20:18)
[2019-04-04] MEDS: METOPROLOL 25 MG TAB PO ×2 (07:54→20:15)
[2019-04-04] MEDS: ALLOPURINOL 100 MG TAB PO ×2 (08:30→20:15)
[2019-04-04] MEDS: GABAPENTIN 100 MG CAP PO ×3 (08:30→20:15)
[2019-04-04] MEDS: TOPIRAMATE 25 MG TAB PO (08:30)
[2019-04-04] MEDS: FLUTICASONE 0.05% 16 GM NAS SPRAY NASAL (08:30)
[2019-04-04] MEDS: FLUCONAZOLE 200 MG TAB PO (08:30)
[2019-04-04] MEDS: ASPIRIN (EC) 81 MG TAB PO (08:30)
[2019-04-04] MEDS: CHOLECALCIFEROL 1,000 UNIT TAB PO (08:31)
[2019-04-05] MEDS: SOD CHLORIDE 0.45% 1,000 ML IV ×3 (02:05→17:21)
[2019-04-05] MEDS: SUCRALFATE 1 GM TAB PO ×4 (06:09→20:33)
[2019-04-05] MEDS: CIPROFLOXACIN 250 MG TAB PO ×2 (06:09→17:20)
[2019-04-05] MEDS: INSULIN ASPART [NOVOLOG] 3 ML PEN SC ×4 (07:35→20:32)
[2019-04-05] MEDS: FLUTICASONE 0.05% 16 GM NAS SPRAY NASAL (08:16)
[2019-04-05] MEDS: FLUCONAZOLE 200 MG TAB PO (08:16)
[2019-04-05] MEDS: CHOLECALCIFEROL 1,000 UNIT TAB PO (08:17)
[2019-04-05] MEDS: ALLOPURINOL 100 MG TAB PO ×2 (08:17→20:32)
[2019-04-05] MEDS: ASPIRIN (EC) 81 MG TAB PO (08:17)
[2019-04-05] MEDS: TOPIRAMATE 25 MG TAB PO (08:17)
[2019-04-05] MEDS: GABAPENTIN 100 MG CAP PO ×3 (08:17→20:34)
[2019-04-05] MEDS: METOPROLOL 25 MG TAB PO ×2 (08:25→20:33)
[2019-04-05 10:31] LABS: ANION GAP 10 (5-13); BLOOD UREA NITROGEN 18 mg/dl (7-20); CALCIUM 9.7 mg/dl (8.4-10.2); CARBON DIOXIDE 29 mmol/L (21-31); CHLORIDE 103 mmol/L (97-110); CREATININE 2.44 mg/dl (0.44-1.00); Estimated GFR 20 mL/min (>60); GLUCOSE 139 mg/dl (70-220); POTASSIUM 3.8 mmol/L (3.5-5.1); SODIUM 142 mmol/L (135-144)
[2019-04-05] MEDS: ONDANSETRON 4 MG TAB PO (20:37)
[2019-04-05] MEDS: OXYCODONE/ACETAMINOPHEN (10/325) TAB PO (22:10)
[2019-04-06] MEDS: SOD CHLORIDE 0.45% 1,000 ML IV ×2 (05:08→06:39)
[2019-04-06] MEDS: CIPROFLOXACIN 250 MG TAB PO ×2 (05:09→17:09)
[2019-04-06 05:59] LABS: ANION GAP 9 (5-13); BLOOD UREA NITROGEN 16 mg/dl (7-20); CALCIUM 9.2 mg/dl (8.4-10.2); CARBON DIOXIDE 26 mmol/L (21-31); CHLORIDE 105 mmol/L (97-110); CREATININE 2.19 mg/dl (0.44-1.00); Estimated GFR 23 mL/min (>60); GLUCOSE 93 mg/dl (70-220); POTASSIUM 3.3 mmol/L (3.5-5.1); SODIUM 140 mmol/L (135-144)
[2019-04-06] MEDS: INSULIN ASPART [NOVOLOG] 3 ML PEN SC ×4 (07:35→20:36)
[2019-04-06] MEDS: SUCRALFATE 1 GM TAB PO ×4 (08:07→20:34)
[2019-04-06] MEDS: METOPROLOL 25 MG TAB PO ×2 (09:00→20:36)
[2019-04-06] MEDS: FLUTICASONE 0.05% 16 GM NAS SPRAY NASAL (09:00)
[2019-04-06] MEDS: ASPIRIN (EC) 81 MG TAB PO (09:03)
[2019-04-06] MEDS: CHOLECALCIFEROL 1,000 UNIT TAB PO (09:03)
[2019-04-06] MEDS: TOPIRAMATE 25 MG TAB PO (09:04)
[2019-04-06] MEDS: GABAPENTIN 100 MG CAP PO ×3 (09:04→20:36)
[2019-04-06] MEDS: FLUCONAZOLE 200 MG TAB PO (09:04)
[2019-04-06] MEDS: ALLOPURINOL 100 MG TAB PO ×2 (09:04→20:34)
[2019-04-06] MEDS: ONDANSETRON 4 MG TAB PO ×2 (09:11→22:12)
[2019-04-06] MEDS: OXYCODONE/ACETAMINOPHEN (10/325) TAB PO (20:36)
[2019-04-07] MEDS: SOD CHLORIDE 0.45% 1,000 ML IV ×2 (00:10→15:49)
[2019-04-07] MEDS: CIPROFLOXACIN 250 MG TAB PO ×2 (06:04→17:04)
[2019-04-07] MEDS: SUCRALFATE 1 GM TAB PO ×4 (06:05→20:00)
[2019-04-07 06:12] LABS: ANION GAP 9 (5-13); BLOOD UREA NITROGEN 17 mg/dl (7-20); CALCIUM 9.4 mg/dl (8.4-10.2); CARBON DIOXIDE 26 mmol/L (21-31); CHLORIDE 106 mmol/L (97-110); CREATININE 2.08 mg/dl (0.44-1.00); Estimated GFR 25 mL/min (>60); GLUCOSE 91 mg/dl (70-220); POTASSIUM 3.6 mmol/L (3.5-5.1); SODIUM 141 mmol/L (135-144)
[2019-04-07] MEDS: INSULIN ASPART [NOVOLOG] 3 ML PEN SC ×4 (07:35→21:00)
[2019-04-07] MEDS: FLUTICASONE 0.05% 16 GM NAS SPRAY NASAL (08:30)
[2019-04-07] MEDS: CHOLECALCIFEROL 1,000 UNIT TAB PO (08:54)
[2019-04-07] MEDS: GABAPENTIN 100 MG CAP PO ×3 (08:54→20:00)
[2019-04-07] MEDS: ASPIRIN (EC) 81 MG TAB PO (08:54)
[2019-04-07] MEDS: TOPIRAMATE 25 MG TAB PO (08:55)
[2019-04-07] MEDS: ALLOPURINOL 100 MG TAB PO ×2 (08:55→20:00)
[2019-04-07] MEDS: METOPROLOL 25 MG TAB PO ×2 (08:55→20:00)
[2019-04-07] MEDS: FLUCONAZOLE 200 MG TAB PO (08:55)
[2019-04-07] MEDS: ONDANSETRON 4 MG TAB PO (20:00)
[2019-04-07] MEDS: OXYCODONE/ACETAMINOPHEN (10/325) TAB PO (20:01)
[2019-04-08] MEDS: SOD CHLORIDE 0.45% 1,000 ML IV (05:00)
[2019-04-08] MEDS: CIPROFLOXACIN 250 MG TAB PO ×2 (05:00→17:10)
[2019-04-08 05:10] LABS: ANION GAP 6 (5-13); BLOOD UREA NITROGEN 14 mg/dl (7-20); CALCIUM 9.3 mg/dl (8.4-10.2); CARBON DIOXIDE 28 mmol/L (21-31); CHLORIDE 107 mmol/L (97-110); CREATININE 1.82 mg/dl (0.44-1.00); Estimated GFR 29 mL/min (>60); GLUCOSE 104 mg/dl (70-220); POTASSIUM 3.9 mmol/L (3.5-5.1); SODIUM 141 mmol/L (135-144)
[2019-04-08] MEDS: INSULIN ASPART [NOVOLOG] 3 ML PEN SC ×3 (07:35→17:10)
[2019-04-08] MEDS: ALLOPURINOL 100 MG TAB PO (08:13)
[2019-04-08] MEDS: TOPIRAMATE 25 MG TAB PO (08:13)
[2019-04-08] MEDS: FLUCONAZOLE 200 MG TAB PO (08:13)
[2019-04-08] MEDS: ASPIRIN (EC) 81 MG TAB PO (08:13)
[2019-04-08] MEDS: METOPROLOL 25 MG TAB PO (08:14)
[2019-04-08] MEDS: CHOLECALCIFEROL 1,000 UNIT TAB PO (08:14)
[2019-04-08] MEDS: GABAPENTIN 100 MG CAP PO ×2 (08:14→12:40)
[2019-04-08] MEDS: SUCRALFATE 1 GM TAB PO ×3 (08:14→17:10)
[2019-04-08] MEDS: FLUTICASONE 0.05% 16 GM NAS SPRAY NASAL (08:15)
[2019-04-08] MEDS ORDERED: DOXYCYCLINE 100 MG TAB PO (21:00)
== END 2019-04-08 18:58 | disposition home health service (06) | DRG 863 ==
LOC: MS3 19:44 → E/R 14:48 → MS3 03-25 13:25
DX: T81.41XA Infection following a procedure, superficial incisional surgical site, initial encounter (principal); T81.31XA Disruption of external operation (surgical) wound, not elsewhere classified, initial encounter; Z68.43 Body mass index [BMI] 50.0-59.9, adult; B37.89 Other sites of candidiasis; N17.9 Acute kidney failure, unspecified; N13.30 Unspecified hydronephrosis; E11.8 Type 2 diabetes mellitus with unspecified complications; K58.9 Irritable bowel syndrome, unspecified; E66.01 Morbid (severe) obesity due to excess calories; Z98.1 Arthrodesis status; B96.4 Proteus (mirabilis) (morganii) as the cause of diseases classified elsewhere; B95.7 Other staphylococcus as the cause of diseases classified elsewhere
CPT/HCPCS: 76775; 80048; 80053; 80202; 82550; 82962; 83036; 84560; 85025; 87040-91; 87070; 87081; 96365; 99285-25